=== PATIENT | female | born 1990 | race Caucasian/White ===

== ENCOUNTER 2018-02-28 09:42 | Emergency (ER) | payer BC, SELFPAY ==
[2018-02-28 09:49] VITALS: BP 118/73; PULSE 75; RESP 16; TEMP 37; O2SAT 98
--- NOTE | 2018-02-28 10:10 | ED.GENADUL ---
Disposition Clinical Impression: Right breast dermatitis Disposition: HOME Condition: Good Additional Instructions: Take medications as prescribed. Follow-up with regular doctor if not improving in 7 days time for Return to the emergency department if he develops spreading redness, fever, chills, or any other acute concern Prescriptions: Cephalexin [Keflex] 500 mg PO TID & HS #21 capsule Prednisone 40 mg PO DAILY #10 tablet Medical Decision Making - Medical Decision Making 27-year-old female with right breast irritation, dermatitis following hymenoptera envenomation 4 days ago. Discussed with her difficult to discern local induration as a result of inflammation or early infection. Will treat with oral steroids for 5 days, as well as a course of Keflex.. 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 She was stung by a bee 4 days ago to the right breast and since that time, despite oral Benadryl, topical Benadryl, she has had persistent redness, itching and burning sensation. She has not had significant swelling or fever. Is been mild, constant, minimally improved with the medications. No difficulty swallowing or breathing - Related Data Cephalexin [Keflex] 500 mg PO TID & HS #21 capsule 02/28/18 Loratidine/Pseudoephedine [Claritin-D 24 Hour Tab SA] 1 tab PO DAILY 02/28/18 Prednisone 40 mg PO DAILY #10 tablet 02/28/18 Allergies Allergy/AdvReac Type Severity Reaction Status Date / Time bees Allergy Severe Anaphylaxsi Uncoded 02/28/18 09:53 s Review of Systems Other: 6 systems reviewed, otherwise negative Past Medical History - Past Medical History Bilateral breast augmentation, see nursing General Exam - General Limitations: no limitations General appearance: alert, in no apparent distress - Head Head exam: Present: atraumatic, normocephalic - Eye Eye exam: Present: PERRL, EOMI - Neck Neck exam: Present: normal inspection, full ROM - Respiratory Respiratory exam: Present: normal lung sounds bilaterally, other (Right breast superior, medial quadrant with erythema, tenderness, mild induration. There is no significant fluctuance. There is no swelling.). Absent: respiratory distress - Cardiovascular Cardiovascular Exam: Present: regular rate, normal rhythm - GI/Abdominal GI/Abdominal exam: Present: soft. Absent: distended, tenderness - Neurological Exam Neurological exam: Present: alert, oriented X3 - Psychiatric Psychiatric exam: Present: normal affect, normal mood - Skin Skin exam: Present: warm, dry, intact Course Vital Signs - 24 hr 02/28/18 09:49 Temperature 37 C Pulse 75 Respiratory 16 Rate Blood Pressure 118/73 Pulse Oximetry 98
== END 2018-02-28 10:25 | disposition home or self-care (01) ==
PROVIDERS: Emergency Provider Emergency Medicine
DX: T63.441A Toxic effect of venom of bees, accidental (unintentional), initial encounter (principal); L24.89 Irritant contact dermatitis due to other agents
CPT/HCPCS: 99283